=== PATIENT | female | born 1980 | race Caucasian/White ===

== ENCOUNTER 2016-09-26 16:16 | Emergency (ER) | payer OTHER ==
[2016-09-26 16:59] LABS: BASOPHIL 0.2 % (0-2); EOSINOPHIL 0.4 % (0-5); HGB 14.2 g/dl (12.5-16.0); LYMPHOCYTE 13.8 % (15-48); MCH 28.6 pg (25.0-31.0); MCHC 35.5 g/dL (32.0-36.0); MCV 80.5 fL (78.0-100.0); MONOCYTE 4.4 % (0-12); MPV 8.6 fL (6.0-9.5); NEUTROPHIL 81.2 % (41-80); PLT 298 K/uL (150-400); RBC 4.97 M/uL (4.20-5.40)
[2016-09-26 17:08] LABS: INR 1.02 (0.9-1.2); PTT 29.4 SECONDS (23.2-31.4)
[2016-09-26 17:15] LABS: ALBUMIN 4.4 g/dL (3.5-5.0); BILIRUBIN - TOTAL 0.5 mg/dL (0.1-1.0); CREATININE 0.8 mg/dL (0.5-1.0); GLOBULIN (CALCULATION) 2.8 g/dL (2.2-4.2); MAGNESIUM 2.1 mg/dL (1.40-2.10); POTASSIUM 4.2 mmol/L (3.5-5.1); TOTAL PROTEIN 7.2 g/dL (6.4-8.3)
[2016-09-26 17:17] LABS: PRO-BNP 77 pg/mL (0-125); TROPONIN T < 0.010 ng/mL
[2016-09-26 17:18] LABS: CKMB < 1.00 ng/mL (0.97-4.94)
[2016-09-26 17:19] LABS: MYOGLOBIN < 21 ng/mL (26-65)
== END 2016-09-26 21:20 | disposition home or self-care (01) ==
LOC: FER 16:16
PROVIDERS: Internal Medicine
DX: K80.50 Calculus of bile duct without cholangitis or cholecystitis without obstruction (principal); R07.9 Chest pain, unspecified; R51 Headache; Z82.3 Family history of stroke; Z88.0 Allergy status to penicillin; Z98.890 Other specified postprocedural states
CPT/HCPCS: 36415; 71020; 80053; 82550; 82553; 83735; 83874; 83880; 84484; 85025; 85610; 85730; 93005; C9113; J2405

== ENCOUNTER → 2016-10-04 | Day surgery (SDC) | payer OTHER ==
[2016-10-04 10:01] LABS: HCT 39.8 % (37.0-47.0); MCH 28.4 pg (25.0-31.0); MCHC 35.2 g/dL (32.0-36.0); MCV 80.7 fL (78.0-100.0); MPV 8.7 fL (6.0-9.5); RBC 4.93 M/uL (4.20-5.40); RDW 13.3 % (11.5-14.0); WBC 10.8 K/uL (4.0-10.5)
[2016-10-04 10:53] LABS: INR 1.02 (0.9-1.2); PTT 31.4 SECONDS (23.2-31.4)
[2016-10-04 11:07] LABS: ALBUMIN 4.3 g/dL (3.5-5.0); BILIRUBIN - TOTAL 0.4 mg/dL (0.1-1.0); CREATININE 0.8 mg/dL (0.5-1.0); GLOBULIN (CALCULATION) 2.8 g/dL (2.2-4.2); TOTAL PROTEIN 7.1 g/dL (6.4-8.3)
== END | disposition home or self-care (01) ==
LOC: FAS 09:17
PROVIDERS: Surgery
DX: K80.10 Calculus of gallbladder with chronic cholecystitis without obstruction (principal); K21.9 Gastro-esophageal reflux disease without esophagitis; Z88.0 Allergy status to penicillin; Z79.899 Other long term (current) drug therapy; Z98.890 Other specified postprocedural states
CPT/HCPCS: 36415; 80053; 84703; 85610; 85730; 88304; J1170; J2405; J2704; J2710; J3010